=== PATIENT | male | born 1960 | race African-American/Black ===

== ENCOUNTER 2018-09-17 17:23 | Emergency (ER) | payer OTHER ==
[~2018-09-17] VITALS: Ht 170.2 cm; Wt 61.2 kg
[~2018-09-17 17:23] MED LIST: ATENOLOL 100MG100 M2 PO; DOXYCYCLINE 10100 MG PO; HYDROCHLOROTHIA25 M2 PO; LISINOPRIL40 MG PO; PROVENTIL HFA6.7 G1 INH; TESSALON PERLE100 MG PO
[2018-09-17] MEDS ORDERED: AMLODIPINE BESY10 MG PO (17:34)
[2018-09-17] MEDS ORDERED: TRAMADOL 50 MG50 MG PO (17:34)
[2018-09-17] MEDS ORDERED: OXYCONTIN10 M1 PO (17:34)
[2018-09-17] MEDS ORDERED: PROTONIX40 M1 PO (17:35)
[2018-09-17] MEDS ORDERED: ULTRAM 50MG TAB50 MG PO (18:31)
[2018-09-17 18:40] VITALS: BP 118/74
== END 2018-09-17 18:41 | disposition home or self-care (01) ==
LOC: ER 17:23
DX: G89.18 Other acute postprocedural pain (principal); M54.2 Cervicalgia; I10 Essential (primary) hypertension; M19.90 Unspecified osteoarthritis, unspecified site; F17.210 Nicotine dependence, cigarettes, uncomplicated